=== PATIENT | female | born 1965 | race Two or more races ===

== ENCOUNTER 2016-07-06 13:14 | Emergency (ER) | payer SELFPAY ==
[~2016-07-06 13:14] MED LIST: EPINEPHrine SYR 0.1 MG/ML* (1:10,000) SYRINGE ONE
[2016-07-06] MEDS ORDERED: Sodium Bicarbonate 8.4%* 50 ML SYRINGE ONE (13:16)
[2016-07-06] MEDS ORDERED: EPINEPHrine SYR 0.1 MG/ML* (1:10,000) SYRINGE ONE (13:17)
[2016-07-06 13:54] VITALS: BP 0/0
--- NOTE | 2016-07-06 15:37 | ED ---
Av Rodrigez Rebecca, scribed for Brad Guerin MD on 07/06/16 at 1326 . Cardiac Resuscitation - HPI Summary HPI Summary: Pt is a 51 y/o F BIBA p/w cardiac arrest. There was a witnessed episode of LOC and apnea onset. She did not receive CPR between 911 call and EMS arrival. Pt was asystolic and apneic upon EMS arrival. EMS intubated her and inserted a peripheral IV. EMS administered a total of 4 epis and 1 narcan en route with 1 bicarb infield. Last epi was 5 minutes before arrival. CPR was done for 40 minutes. Pt had been asystolic since EMS arrival, barring one brief episode of V fib. During V Fib pt was shocked and returned to asystole. On arrival to [facility] ED, pt was asystolic, had been bagged and in active CPR. - History of Current Complaint Stated Complaint: CARDIAC ARREST Hx Obtained From: EMS Hx From Patient Unobtainable Due To: Extremis Onset/Duration: Unknown Arrest Witnessed: Yes Was AED Placed on Patient: Yes AED Placed on Patient By: EMS - When pt briefly went into V fib Did AED Recommend Defibrillation: Yes Was Defibrillating Shock Administered: Yes Did Patient Have Return of Spontaneous Circulation (ROSC): No - Prehospital Findings Breathing: Apnea Circulation/Rhythm: Asystole, VFib - very briefly, then returned to asystole - Prehospital Intervention Breathing: Intubation:, Oxygen-Bag Circulation/Rhythm: IV Catheter Placed - Prehospital Response Breathing: Other: - Apnea Circulation/Rhythm: Asystole - Allergies/Home Medications Allergies/Adverse Reactions: Allergies Allergy/AdvReac Type Severity Reaction Status Date / Time No Known Allergies Allergy Verified 12/06/13 12:30 - Past Medical History Past Medical History: Unobtainable Due to Extremis - Family History Family History: Unobtainable Due to Extremis - Social History Social History: Unobtainable Due to Extremis - Review of Systems Review of Systems: Unobtainable Due to Extremis Physical Examination - Physical Examination Resuscitation: Unsuccessful Physical Exam Additional Comments: Vital signs: reviewed General: Patient is thin cold female BIBEMS with active CPR a HEENT: Pupils are fixed and dilatated Lungs: Acively being bagged CVS: No cardiac sounds. Abdomen: Soft, slightly distended Extremities: no edema Neuro: Unresponsive Skin: cold - ED Findings Breathing: Apnea Circulation/Rhythm: Asystole Disability/Neurological: Unresponsive, Pupils Fixed, Pupils Dilated - ED Intervention Airway: Other: - Patient is intubated. Breathing: Intubation: - ED Response Breathing: ETT in Airway: Circulation/Rhythm: Asystole - Glascow Coma Score Eye Openin - None Motor: 1 - None Verbal: 1 - None Coma Scale Total: 3 Diagnostics - Vital Signs Vital Signs Temp Pulse Resp BP Pulse Ox 07/06/16 13:48 98.8 F 0 0 0/0 100 - Laboratory Lab Statement: Any lab studies that have been ordered have been reviewed, and results considered in the medical decision making process. Cardiac Resus. Course/Dx - Course Assessment/Plan: A&P: 51 y/o F came in asystolic and in active CPR. She has been with CPR for approximately 40 minutes. In the ER course, the pt was given 2 EPIs, bicarb and calcium gluconate. Continued CPR, showing no pulses and no cardiac rhythm. With US we checked and there was no cardiac activity. Therefore there was no other suggestion and the CPR was stopped at 1317. Spoke with the niece and she said pt is an alcoholic and has not been taking medicationss as indicated for the last couple of weeks. Probably thinks that last night she was drinking alcohol but does not know exactly what could have brought on episode today. - Diagnoses Provider Diagnoses: Cardiorespiratory arrest During the Visit The Following Alert/Code Occurred: ABC Alert - Provider Notifications Discussed Care Of Patient With: Dr. Jose Mistry, corrective therapy aide teacher, who would like to discuss with the niece before he makes a decision for the pt to get an autopsy. Dr. Mistry states that the body should be brought to the morgue and should not be released until he has made a decision. Time Discussed With Above Provider: 13:51 - Critical Care Time Critical Care Time: 30-74 min Discharge - Discharge Plan Condition: Disposition: Referrals: Dale Rivera MD [Primary Care Provider] - The documentation as recorded by the Av osman Rebecca accurately reflects the service I personally performed and the decisions made by , Brad Guerin MD.
== END 2016-07-06 13:48 | disposition expired ==
LOC: ED 13:14
DX: I46.9 Cardiac arrest, cause unspecified (principal)
CPT/HCPCS: 92950; 96372; 99285; J0171